=== PATIENT | female | born 1980 | race African-American/Black ===

== ENCOUNTER 2020-11-15 18:22 | Emergency (ER) | payer MEDICAID ==
[~2020-11-15] VITALS: Ht 175.3 cm; Wt 136.1 kg
--- NOTE | 2020-11-15 19:45 | Emergency Room Report ---
History of Present Illness General Chief Complaint: To Be Triaged Present Illness HPI 40-year-old female with no significant pmhx. presents to the emergency department complaining of 6 out of 10 severity left lower calf pain progressive x2 weeks. Patient reports noticing swelling today only because her doctor pointed it out. Patient reports she was having evaluation by her PCP for left lower extremity pain and was ultimately sent to ED to rule out DVT. Patient denies history of blood clots. She denies history of blood dyscrasias. She denies chest pain, shortness of breath. She denies estrogen use or history of smoking. She denies recent immobilization or travel. She denies trauma or fall but does report strenuous activity and states that she was recently moving in the last 2 days. She reports she is ambulatory but her pain is exacerbated with walking. No other aggravating relieving factors at this time. (Alanna Gutierrez) Allergies: Coded Allergies: No Known Allergies (Unverified , 11/15/20) COVID-19 Screening Contact w/high risk pt: No Recent Travel to affected area: No Experienced COVID-19 symptoms?: No COVID-19 Testing performed SQL SSRS SSIS DEVELOPER: No (Alanna Gutierrez) Patient History Past Medical History: see triage record Past Surgical History: none Pertinent Family History: none Reviewed Nursing Documentation: PMH: Agreed; PSxH: Agreed (Alanna Gutierrez) Review of Systems All Other Systems: negative except mentioned in HPI (Alanna Gutierrez) Physical Exam Sp02 EP Interpretation: reviewed, normal General Appearance: no apparent distress, alert, GCS 15, non-toxic, obese Head: normocephalic, atraumatic Eyes: bilateral eye normal inspection, bilateral eye PERRL ENT: hearing grossly normal, normal voice Neck: full range of motion Respiratory: chest non-tender, lungs clear, normal breath sounds, speaking full sentences Cardiovascular #1: regular rate, rhythm, normal capillary refill Cardiovascular #2: 2+ dorsalis pedis (R) - post. tibial, 2+ dorsalis pedis (L) - post tibial Musculoskeletal: normal range of motion, gait/station normal, tender - TTP to the proximal and medial area of the left calf. No erythema, there is Swelling noted. No warmth. Neurologic: alert, motor strength/tone normal, oriented x3, sensory intact, responsive, speech normal Psychiatric: judgement/insight normal Skin: other - TTP to the proximal and medial area of the left calf. No erythema, there is Swelling noted. No warmth. Lymphatic: no adenopathy (Alanna Gutierrez) Medical Decision Making PA Attestation Dr. Oro is my supervising Physician whom patient management has been discussed with. (Alanna Gutierrez) PA Attestation I participate in the care of this patient along with VENKAT Gray Briefly, this a 40-year-old female presenting for left leg swelling. She was found to have a DVT in the popliteal vein. No cerulea dolens identified. Labs are within normal limits. Well-appearing and stable for outpatient follow-up. Will start Xarelto and first dose given here in the ED. Discussed with patient's PMD who agrees with outpatient management. We discussed the risks of anticoagulant therapy and special cautions needed to take while on blood thinners. Will prescribe a short course of pain medication. She will follow up with PMD and return with new or worsening symptoms. She understands and agrees with this treatment plan. (Nick Oro MD) Diagnostic Impression: Primary Impression: Deep venous thrombosis Qualified Codes: I82.432 - Acute embolism and thrombosis of left popliteal vein ER Course 40-year-old female with no significant pmhx. presents to the emergency department complaining of 6 out of 10 severity left lower calf pain progressive x2 weeks. Patient reports noticing swelling today only because her doctor pointed it out. Patient reports she was having evaluation by her PCP for left lower extremity pain and was ultimately sent to ED to rule out DVT. Patient denies history of blood clots. She denies history of blood dyscrasias. She denies chest pain, shortness of breath. She denies estrogen use or history of smoking. She denies recent immobilization or travel. She denies trauma or fall but does report strenuous activity and states that she was recently moving in the last 2 days. She reports she is ambulatory but her pain is exacerbated with walking. No other aggravating relieving factors at this time. Ddx considered but are not limited to Cellulitis, DVT, varicose vein, PAD,Venous insufficiency Vital signs: are WNL, pt. is afebrile H&PE are most consistent with possible DVT of the left lower extremity. ORDERS: -CMP, CBC with Diff: Unremarkable. -PT/PTT: WNL 11.3/ INR 1.0 LE duplex U/s: Positive for acute popliteal DVT. ED INTERVENTIONS: Attempted to contact Pt. PCP. Dr. Nogueira DISPOSITION: Patient is signed out to attending physician awaiting contact with primary care provider and final care plan decision as to which outpatient treatment for this patient's acute DVT will be initiated. Labs Test 11/15/20 19:20 White Blood Count 6.9 K/UL (4.8-10.8) Red Blood Count 4.59 M/UL (4.20-5.40) Hemoglobin 12.2 G/DL (12.0-16.0) Hematocrit 39.0 % (37.0-47.0) Mean Corpuscular Volume 85 FL (80-99) Mean Corpuscular Hemoglobin 26.5 PG (27.0-31.0) Mean Corpuscular Hemoglobin Concent 31.2 G/DL (32.0-36.0) Red Cell Distribution Width 15.3 % (11.6-14.8) Platelet Count 153 K/UL (150-450) Mean Platelet Volume 10.8 FL (6.5-10.1) Neutrophils (%) (Auto) 63.3 % (45.0-75.0) Lymphocytes (%) (Auto) 26.0 % (20.0-45.0) Monocytes (%) (Auto) 6.4 % (1.0-10.0) Eosinophils (%) (Auto) 3.1 % (0.0-3.0) Basophils (%) (Auto) 1.1 % (0.0-2.0) Prothrombin Time 11.1 SEC (9.30-11.50) Prothromb Time International Ratio 1.0 (0.9-1.1) Activated Partial Thromboplast Time 27 SEC (23-33) Sodium Level 143 MMOL/L (136-145) Potassium Level 3.2 MMOL/L (3.5-5.1) Chloride Level 108 MMOL/L (98-107) Carbon Dioxide Level 28 MMOL/L (21-32) Anion Gap 7 mmol/L (5-15) Blood Urea Nitrogen 12 mg/dL (7-18) Creatinine 0.8 MG/DL (0.55-1.30) Estimat Glomerular Filtration Rate > 60 mL/min (>60) Glucose Level 103 MG/DL (74-106) Calcium Level 9.2 MG/DL (8.5-10.1) (Alanna Gutierrez) CT/MRI/US Diagnostic Results CT/MRI/US Diagnostic Results : Imaging Test Ordered: Venous duplex of the left lower extremity Impression " Positive for acute DVT of the left popliteal vein"- per US tech verbal report. (Alanna Gutierrez) Disposition: HOME, SELF-CARE Condition: Stable Scripts Hydrocodone/Acetaminophen 5-325* (HYDROCODONE/ACETAMINOPHEN 5-325*) 1 Each Tablet 1 TAB ORAL Q6H PRN for For Pain, #12 TAB 0 Refills Prov: Nick Oro MD 11/15/20 Rivaroxaban (XARELTO) 15 Mg Tablet 15 MG ORAL BID for Anticoagulant for 21 Days, #42 MG 0 Refills Prov: Nick Oro MD 11/15/20 Referrals: [facility],REFERRING (PCP) Departure Forms: Return to Work Return to Work Date: Nov 22, 2020 Other Restrictions: Limited use of left leg, limit strenuous activities. Return to Full Activity: Nov 22, 2020 Work Restrictions: No Heavy Lifting Patient Instructions: Deep Vein Thrombosis Additional Instructions: Take medications as directed. Follow up with a Primary Care Provider in 3-5 days, even if your symptoms have resolved. Return sooner to ED if new symptoms occur, or current symptoms become worse. - Please note that this Emergency Department Report was dictated using [employer] advanced technology software, occasionally this can lead to erroneous entry secondary to interpretation by the dictation equipment. Alanna Gutierrez Nov 15, 2020 19:45 Nick Oro MD Nov 15, 2020 21:23
[2020-11-15 19:58] LABS: BASOPHILS % (AUTO) 1.1 % (0.0-2.0); EOSINOPHILS % (AUTO) 3.1 % (0.0-3.0); HEMOGLOBIN 12.2 G/DL (12.0-16.0); MEAN CORPUSCULAR VOLUME 85 FL (80-99); MONOCYTES % (AUTO) 6.4 % (1.0-10.0); NEUTROPHILS % (AUTO) 63.3 % (45.0-75.0); PLATELET COUNT 153 K/UL (150-450); RED BLOOD COUNT 4.59 M/UL (4.20-5.40); RED CELL DISTRIBUTION WIDTH 15.3 % (11.6-14.8); WHITE BLOOD COUNT 6.9 K/UL (4.8-10.8)
--- NOTE | 2020-11-15 20:00 | NUR ---
us tech at bedside
[2020-11-15 20:01] LABS: ANION GAP 7 mmol/L (5-15); BLOOD UREA NITROGEN 12 mg/dL (7-18); CALCIUM 9.2 MG/DL (8.5-10.1); CARBON DIOXIDE 28 MMOL/L (21-32); CHLORIDE 108 MMOL/L (98-107); CREATININE 0.8 MG/DL (0.55-1.30); POTASSIUM 3.2 MMOL/L (3.5-5.1); SODIUM 143 MMOL/L (136-145)
--- NOTE | 2020-11-15 20:03 | NUR ---
pt aox3. resting comfortably on the cart. v/s stable. pt in no distress. will continue to monitor pt
[2020-11-15 20:17] VITALS: BP 179/87
--- NOTE | 2020-11-15 20:39 | Diagnostic Imaging Report ---
EXAM: US Duplex Left Lower Extremity Veins CLINICAL HISTORY: PAIN TECHNIQUE: Real-time duplex ultrasound scan of the left lower extremity veins integrating B-mode two-dimensional vascular structure, Doppler spectral analysis, color flow Doppler imaging and compression. COMPARISON: No relevant prior studies available. FINDINGS: Deep veins: Occlusive thrombus is demonstrated within the left popliteal vein with filling defect noncompressibility as well as absent color Doppler flow. There is mild increased venous diameter. The left anterior tibial vein is not visualized due to patient body habitus and left calf edema. Remainder of the deep veins of the left lower extremity are without intraluminal thrombus. Superficial veins: Unremarkable. No thrombus in the visualized great saphenous vein. Soft tissues: Subcutaneous interstitial edema of the calf is demonstrated. No popliteal cyst. IMPRESSION: 1. Occlusive left popliteal deep venous process. 2. Nonvisualization of the left anterior tibial vein due to overlying edema and patient body habitus. Thrombus is not excluded. 3. Left calf subcutaneous interstitial edema. <MYCVCSECTION> Communications: 11/15/20 21:17 Verify Receipt Verified receipt with [facility] in [place] ofr Dr. Oro on 11/15 21:17 (-08:00)
[2020-11-15] MEDS ORDERED: Xarelto 10mg tab ORAL ONE (21:00)
[2020-11-15] MEDS ORDERED: XARELTO15 MG ORAL (21:17)
[2020-11-15] MEDS ORDERED: HYDROCODON-ACE1 EA15 ORAL (21:17)
--- NOTE | 2020-11-15 21:25 | NUR ---
pt given and understands discharge instructions. v/s stable. pt in no distress. pt request crutches
== END 2020-11-15 21:25 | disposition home or self-care (01) ==
LOC: EMR 19:22
DX: I82.432 Acute embolism and thrombosis of left popliteal vein (principal)
CPT/HCPCS: 36415; 80048; 85025; 85610; 85730; 93971; Z7502; 99284